=== PATIENT | male | born 1995 | race Two or more races ===

== ENCOUNTER 2016-11-22 01:46 | Emergency (ER) | payer SELFPAY ==
[2016-11-22 02:21] VITALS: BP 118/70
== END 2016-11-22 04:00 | disposition left against medical advice (07) ==
LOC: ER 01:46
DX: Z53.9 Procedure and treatment not carried out, unspecified reason (principal); R07.9 Chest pain, unspecified

== ENCOUNTER 2017-12-13 19:49 | Emergency (ER) | payer SELFPAY ==
[2017-12-13] MEDS ORDERED: KETOROLAC TROMETHAMINE INJ/PF 30 MG/1 ML SDV IM ONE (20:55)
--- NOTE | 2017-12-13 20:58 | ER Document Report ---
ED Cardiac - General Chief Complaint: L sided rib/ side pain Stated Complaint: LT SIDE PAIN Time Seen by Provider: 12/13/17 20:49 Mode of Arrival: Ambulatory Information source: Patient TRAVEL OUTSIDE OF THE [place] IN LAST 30 DAYS: No - HPI Patient complains to provider of: Chest pain Notes: The patient is here with complaints of left side/rib pain is been present for the last 5 days. He states the pain has been constant. It is worse if he moves his left arm or touches the area. It is worse to lay on that side. Is also worse if he takes a deep breath or coughs. He denies any shortness of breath. He denies any recent long trips or surgeries, no leg pain or swelling, no history of DVT or PE, no history of cancer. He denies any abdominal pain. He denies any nausea, vomiting, diarrhea. No blood thinners. No dysuria or hematuria. No history of kidney stones. He denies any traumatic injury to this area. No rash. No fever. He has no other complaints at this time. He denies a history of hypertension, high cholesterol, diabetes, CAD. - Related Data Allergies/Adverse Reactions: No Known Allergies Allergy (Verified 11/22/16 02:13) Past Medical History - Social History Smoking Status: Never Smoker Chew tobacco use (# tins/day): No Frequency of alcohol use: Occasional Drug Abuse: Marijuana Family History: None Patient has suicidal ideation: No Patient has homicidal ideation: No Neurological Medical History: Reports: Hx Migraine Renal/ Medical History: Denies: Hx Peritoneal Dialysis - Immunizations Immunizations up to date: Yes Hx Diphtheria, Pertussis, Tetanus Vaccination: Yes Review of Systems - Review of Systems -: Yes All other systems reviewed and negative Physical Exam - Vital signs Vitals: Temp Pulse Resp BP Pulse Ox 99.1 F 77 16 118/78 98 12/13/17 20:28 12/13/17 20:28 12/13/17 20:28 12/13/17 20:28 12/13/17 20:28 - Notes Notes: GENERAL: alert, cooperative, nontoxic, no distress. HEAD: normocephalic, atraumatic EYES: conjunctiva pink without discharge, no external redness or swelling. EARS: no external swelling, no external redness NOSE: atraumatic, no external swelling MOUTH/THROAT: mucous membranes moist and pink, posterior pharynx without erythema, swelling, exudate. No trismus or drooling. NECK: soft, supple, full range of motion, no meningismus. CHEST: no distress, lungs clear and equal throughout. No wheezing, rales, rhonchi. Tenderness to the left lateral and posterior ribs. No crepitus. No rash to this area. CARDIAC: regular rate and rhythm, no murmur, normal capillary refill, normal pulses. No peripheral edema noted. ABDOMEN: Soft, nontender. No rebound tenderness or guarding. No mass. BACK: full range of motion, no CVA tenderness. EXTREMITIES: full range of motion of all extremities. No redness, no swelling. NEURO: alert and oriented x 3, no focal deficits, full range of motion of all extremities. PYSCH: appropriate mood, affect. Patient is cooperative. SKIN: pink, warm, dry, no rash. Course - Re-evaluation Re-evalutation: 12/13/17 23:20 The patient is nontoxic appearing with stable vitals. The patient has been having left rib/side pain for the last few days. Worse with movement, worse with touching the area, worse with taking a deep breath. No shortness of breath. He has no PE risk factors and is PERC rule negative for PE, therefore no further provocative testing is required to rule out PE. EKG shows no signs of pericarditis or other acute findings. Chest x-ray shows no acute findings. Urinalysis shows no significant findings with no blood concerning for kidney stone. The pain is reproducible and worse with movement and likely musculoskeletal in nature. At this point the patient will be discharged home with Naprosyn. Follow-up if not better in 1 week, sooner for worsening pain, high fever, persistent vomiting, or for any further concerns. The patient's emergency department workup and current diagnosis were explained to the patient and or family. Follow-up instructions were provided. Medications if prescribed were discussed. Instructions for when to return to the emergency department including specific worrisome symptoms were discussed with the patient and/or family. - Vital Signs Vital signs: Temp Pulse Resp BP Pulse Ox 99.1 F 77 16 118/78 98 12/13/17 20:28 12/13/17 20:28 12/13/17 20:28 12/13/17 20:28 12/13/17 20:28 - Laboratory Laboratory results interpreted by me: 12/13/17 22:20 Urine Urobilinogen 4.0 H Ur Leukocyte Esterase TRACE H Urine Ascorbic Acid 40 H - Diagnostic Test Radiology reviewed: Image reviewed, Reports reviewed - Chest x-ray negative - EKG Interpretation by Me EKG shows normal: Sinus rhythm, [place], Intervals, QRS Complexes, ST-T Waves Rate: Normal Discharge - Discharge Clinical Impression: Left-sided chest wall pain Condition: Stable Disposition: HOME, SELF-CARE Instructions: Anti-Inflammatory Medication ([facility]), Chest Wall Pain ([facility]) Additional Instructions: Take medications as prescribed. Apply ice to sore area. Follow-up with your doctor if not better in 1 week, sooner for increasing pain, high fever, persistent vomiting, blood in your urine, difficulty breathing, or for any further concerns. Prescriptions: Naproxen [Naprosyn] 500 mg PO BID #20 tablet Forms: Smoking Cessation Education Referrals: [facility] [Provider Group] - Follow up as needed
--- NOTE | 2017-12-13 21:58 | RADIOLOGY REPORT (SQ) ---
EXAM DESCRIPTION: CHEST PA/LAT COMPLETED DATE/TIME: 12/13/2017 9:16 pm REASON FOR STUDY: LEFT CP COMPARISON: Chest films 06/30/2016, 11/10/2010 EXAM PARAMETERS: NUMBER OF VIEWS: two views TECHNIQUE: Digital Frontal and Lateral radiographic views of the chest acquired. RADIATION DOSE: NA LIMITATIONS: none FINDINGS: LUNGS AND PLEURA: No acute infiltrates. No pleural effusion or pneumothorax. Faintly rad iopaque surgical oralia at the left lung apex, unchanged. MEDIASTINUM AND HILAR STRUCTURES: No masses or contour abnormalities. HEART AND VASCULAR STRUCTURES: Heart normal size. No evidence for failure. BONES: No acute findings. HARDWARE: None in the chest. OTHER: No other significant finding. IMPRESSION: No acute changes TECHNICAL DOCUMENTATION: JOB ID: [id number] [employer]- All Rights Reserved Reading location - IP/workstation name: [email or web address]
[2017-12-13 22:37] LABS: APPEARANCE,URINE CLEAR; BILIRUBIN,URINE NEGATIVE (NEGATIVE); COLOR,URINE YELLOW; GLUCOSE, URINE NEGATIVE (NEGATIVE); KETONES,URINE NEGATIVE (NEGATIVE); LEUKOCYTE ESTERASE,URINE TRACE (NEGATIVE); NITRITE,URINE NEGATIVE (NEGATIVE); PROTEIN,URINE NEGATIVE (NEGATIVE); URINE SPECIFIC GRAVITY 1.021
[2017-12-13 23:52] VITALS: BP 128/72
--- NOTE | 2017-12-14 08:22 | EKG REPORT ---
SEVERITY:- BORDERLINE ECG - SINUS RHYTHM ST ELEV, PROBABLE NORMAL EARLY REPOL PATTERN : Confirmed by: Claus Lemons MD 14-Dec-2017 08:21:11
== END 2017-12-13 22:51 | disposition home or self-care (01) ==
LOC: ER 19:49
DX: R07.81 Pleurodynia (principal); R07.9 Chest pain, unspecified
CPT/HCPCS: 93005; 99284; 96372; 81001; 71046; 93010; J1885

== ENCOUNTER 2018-02-23 02:21 | Emergency (ER) | payer SELFPAY ==
[2018-02-23 02:33] VITALS: BP 121/69
[2018-02-23] MEDS ORDERED: AMOXICILLIN TR/POT CLAVULANATE 500-125 MG TAB PO ONE (03:46)
--- NOTE | 2018-02-23 04:02 | ER Document Report ---
ED General - General Chief Complaint: Dog Bite Stated Complaint: POSSIBLE DOG BITE Time Seen by Provider: 02/23/18 03:40 Notes: Patient is a 22-year-old male who presents with complaint of a dog bite to the right wrist and forearm. He said occurred 2 days ago. He said it was a well- kept appearing dog and he was checked to see if had a collar. The dog became scared and bit him. He said the dog was otherwise not acting appropriately. Denies any fevers but has noticed some swelling and redness now to his wrist and therefore is come to the ER. He has no chronic medical problems. Is otherwise healthy. TRAVEL OUTSIDE OF THE [place] IN LAST 30 DAYS: No - Related Data Allergies/Adverse Reactions: No Known Allergies Allergy (Verified 11/22/16 02:13) Past Medical History - Social History Smoking Status: Current Every Day Smoker Chew tobacco use (# tins/day): No Frequency of alcohol use: None Drug Abuse: None Family History: None Patient has suicidal ideation: No Patient has homicidal ideation: No Neurological Medical History: Reports: Hx Migraine Renal/ Medical History: Denies: Hx Peritoneal Dialysis - Immunizations Immunizations up to date: Yes Hx Diphtheria, Pertussis, Tetanus Vaccination: Yes Review of Systems - Review of Systems Notes: My Normal Review Basic REVIEW OF SYSTEMS: CONSTITUTIONAL : Denies fever, chills, or sweats. Denies recent illness. MUSCULOSKELETAL: Dog bite to right wrist and forearm. SKIN: Denies rash or skin lesions. HEMATOLOGIC : Denies easy bruising or bleeding. LYMPHATIC: Denies swollen, enlarged glands. NEUROLOGICAL: Denies sensory or motor loss. ALL OTHER SYSTEMS REVIEWED AND NEGATIVE. Physical Exam - Vital signs Vitals: Temp Pulse Resp BP Pulse Ox 99.0 F 92 16 121/69 97 02/23/18 02:32 02/23/18 02:32 02/23/18 02:32 02/23/18 02:32 02/23/18 02:32 - Notes Notes: General Appearance: Well nourished, alert, cooperative, no acute distress, no obvious discomfort. Vitals: reviewed, See vital signs table. Extremities: strength 5/5 in all extremities, good pulses in all extremities, she has a puncture wound over the right wrist. He also has a small superficial tear type laceration over the forearm. The puncture wound does have a small amount of redness and swelling around it consistent with a developing infection. The remainder of the hand and forearm do not have any redness or swelling. Patient is able to move all fingers of his hand. He is able flex and extend the wrist but has a small amount of pain in doing so. Skin: warm, dry, appropriate color, no rash Neuro: speech clear, oriented x 3, normal affect, responds appropriately to questions. Course - Re-evaluation Re-evalutation: 02/23/18 04:54 I did give the patient a wrist splint as he says it is more comfortable for him to have some support to his wrist. He does have approximately 2 cm area of surrounding erythema around dog bite system with developing cellulitis. I will place him on Augmentin. Informed him that if he has any spreading of the redness or swelling that he must return to ER immediately. I did talk to him at length about rabies immunoglobulin prophylactic treatment. I informed her that we do recommend this as rabies is fatal. Patient says that she is pretty sure the dog does not have rabies is not want to incur the cost of the vaccination therefore is going to take the risk and not receiving the rabies treatment. I informed him that he should return to ER anytime if he does change his mind so that we can treat him. Patient agrees with plan will be discharged home. Dictation of this chart was performed using voice recognition software; therefore, there may be some unintended grammatical errors. - Vital Signs Vital signs: Temp Pulse Resp BP Pulse Ox 99.0 F 92 16 121/69 97 02/23/18 02:32 02/23/18 02:32 02/23/18 02:32 02/23/18 02:32 02/23/18 02:32 Discharge - Discharge Clinical Impression: Dog bite Qualifiers: Encounter type: initial encounter Qualified Code(s): W54.0XXA - Bitten by dog, initial encounter Cellulitis Qualifiers: Site of cellulitis: unspecified site Qualified Code(s): L03.90 - Cellulitis, unspecified Condition: Good Disposition: HOME, SELF-CARE Additional Instructions: Please take the antibiotics as prescribed. Please change your dressings daily. You need to return to the ER immediately if the redness is increasing on your wrist. Any worsening of infection is emergent and you need to return to the ER immediately. As discussed with you we, do recommend rabies vaccination as rabies, although rare, is fatal. You have one week from the time of bite to decide whether not to the rabies vaccination. Again we do recommend the rabies vaccination. Prescriptions: Amox Tr/Potassium Clavulanate [Augmentin 875-125 Tablet] 1 tab PO BID 7 Days tablet
--- NOTE | 2018-02-23 04:35 | RADIOLOGY REPORT (SQ) ---
EXAM DESCRIPTION: XR WRIST CLINICAL HISTORY: 22 years Male, dog bite COMPARISON: None. Findings: Mild swelling. No radiopaque foreign body. Bones, joints, and soft tissues of the XR WRIST 3 VIEW RIGHT appear otherwise intact. IMPRESSION: Mild swelling.
== END 2018-02-23 05:40 | disposition home or self-care (01) ==
LOC: ER 02:21
DX: S61.551A Open bite of right wrist, initial encounter (principal); S50.871A Other superficial bite of right forearm, initial encounter; L03.113 Cellulitis of right upper limb; W54.0XXA Bitten by dog, initial encounter; Y93.89 Activity, other specified; F17.200 Nicotine dependence, unspecified, uncomplicated
CPT/HCPCS: 99283; 73110; L3908

== ENCOUNTER 2020-03-14 17:27 | Emergency (ER) | payer SELFPAY ==
[2020-03-14 17:38] VITALS: BP 127/77
[2020-03-14] MEDS ORDERED: ASPIRIN 81 MG TABLET, CHEWABLE PO ONE (17:42)
--- NOTE | 2020-03-14 17:45 | ER Document Report ---
ED Medical Screen (RME) - General Chief Complaint: Palpitations Stated Complaint: PALPITATIONS Time Seen by Provider: 03/14/20 17:40 Mode of Arrival: Ambulatory Information source: Patient Notes: 24-year-old male presented to ED for complaint of palpitations off and on. He states it feels like his heart is racing and he feels like there is a big knot in his throat. He states his not having any "chest pain "but he just does not feel right. He states he does drink 5-hour energy drinks maybe 8 out of every 14 days. He does smoke 2 to 3 cigarettes a day and smokes marijuana. Does not drink alcohol. Patient is alert oriented respirations regular nonlabored at this time. I have greeted and performed a rapid initial assessment of this patient. A comprehensive ED assessment and evaluation of the patient, analysis of test results and completion of medical decision making process will be conducted by an additional ED providers. TRAVEL OUTSIDE OF THE [place] IN LAST 30 DAYS: No - Related Data Allergies/Adverse Reactions: No Known Allergies Allergy (Verified 03/14/20 17:38) Past Medical History - Social History Family history: Reviewed & Not Pertinent Neurological Medical History: Reports: Hx Migraine Renal/ Medical History: Denies: Hx Peritoneal Dialysis - Immunizations Immunizations up to date: Yes Hx Diphtheria, Pertussis, Tetanus Vaccination: Yes Physical Exam - Vital signs Vitals: Temp Pulse Resp BP Pulse Ox 99.2 F 88 21 H 127/77 H 95 03/14/20 17:37 03/14/20 17:37 03/14/20 17:37 03/14/20 17:37 03/14/20 17:37 Course - Vital Signs Vital signs: Temp Pulse Resp BP Pulse Ox 99.2 F 88 21 H 127/77 H 95 03/14/20 17:37 03/14/20 17:37 03/14/20 17:37 03/14/20 17:37 03/14/20 17:37
[2020-03-14 18:14] LABS: ABSOLUTE BASOPHILS # (AUTO) 0.1 10^3/uL (0.0-0.2); ABSOLUTE EOSINOPHILS # (AUTO) 0.1 10^3/uL (0.0-0.6); ABSOLUTE LYMPHOCYTES (AUTO) 2.5 10^3/uL (0.5-4.7); ABSOLUTE MONOCYTES (AUTO) 0.7 10^3/uL (0.1-1.4); ABSOLUTE NEUT (AUTO) 6.5 10^3/uL (1.7-8.2); EOSINOPHILS % (AUTO) 0.6 % (0-6); HEMATOCRIT 40.3 % (37.9-51.0); HEMOGLOBIN 13.6 g/dL (13.5-17.0); LYMPHOCYTES % (AUTO) 25.8 % (13-45); MEAN CORPUSCULAR HGB CONC 33.8 g/dL (32.0-36.0); MEAN CORPUSCULAR VOLUME 83 fl (80-97); MONOCYTES % (AUTO) 6.8 % (3-13); PLATELET COUNT 263 10^3/uL (150-450); RED BLOOD COUNT 4.87 10^6/uL (4.35-5.55); RED CELL DISTRIBUTION WIDTH 13.4 % (11.5-14.0); SEGMENTED NEUTROPHILS % (AUTO) 65.8 % (42-78); TOTAL CELLS COUNTED % (AUTO) 100 %; WHITE BLOOD COUNT 9.8 10^3/uL (4.0-10.5)
[2020-03-14 18:32] LABS: ALBUMIN 4.6 g/dL (3.5-5.0); ALKALINE PHOSPHATASE 67 U/L (38-126); ANION GAP 8 (5-19); ASPARTATE AMINO TRANSFERASE 30 U/L (17-59); BILIRUBIN,TOTAL 0.6 mg/dL (0.2-1.3); BLOOD UREA NITROGEN 14 mg/dL (7-20); CALCIUM 9.8 mg/dL (8.4-10.2); CARBON DIOXIDE 27 mmol/L (22-30); CHLORIDE 102 mmol/L (98-107); GLUCOSE 92 mg/dL (75-110); POTASSIUM 3.8 mmol/L (3.6-5.0)
--- NOTE | 2020-03-14 18:32 | RADIOLOGY REPORT (SQ) ---
EXAM DESCRIPTION: CHEST 2 VIEWS IMAGES COMPLETED DATE/TIME: 03/14/2020 5:57 pm REASON FOR STUDY: palpitations COMPARISON: 12/13/2017 EXAM PARAMETERS: NUMBER OF VIEWS: two views TECHNIQUE: Digital Frontal and Lateral radiographic views of the chest acquired. RADIATION DOSE: NA LIMITATIONS: none FINDINGS: LUNGS AND PLEURA: No opacities, masses or pneumothorax. No pleural effusion. MEDIASTINUM AND HILAR STRUCTURES: No masses or contour abnormalities. HEART AND VASCULAR STRUCTURES: Heart normal size. No evidence for failure. BONES: No acute findings. HARDWARE: None in the chest. OTHER: No other significant finding. IMPRESSION: NO ACUTE RADIOGRAPHIC FINDING IN THE CHEST. TECHNICAL DOCUMENTATION: JOB ID: [id number] [employer]- All Rights Reserved Reading location - IP/workstation name: [email or web address]
--- NOTE | 2020-03-14 19:07 | EKG REPORT ---
SEVERITY:- OTHERWISE NORMAL ECG - SINUS RHYTHM VENTRICULAR PREMATURE COMPLEX : Confirmed by: Paula Nguyen MD 14-Mar-2020 19:06:41
--- NOTE | 2020-03-14 20:43 | ER Document Report ---
ED General - General Chief Complaint: Palpitations Stated Complaint: PALPITATIONS Time Seen by Provider: 03/14/20 17:40 Mode of Arrival: Ambulatory TRAVEL OUTSIDE OF THE [place] IN LAST 30 DAYS: No - HPI Notes: Patient is a 24-year-old male who presents to the emergency department for evaluation of palpitations. He states his been getting them daily for a little over a week. He states that he will have 3 or 4 over the course of 10 minutes. He states that just feels like a "muscle jerk." He denies any associated nausea, shortness of breath, diaphoresis, near syncope. No chest pain or tightness. Patient admits to drinking an excessive amount of caffeine. - Related Data Allergies/Adverse Reactions: No Known Allergies Allergy (Verified 03/14/20 17:38) Home Medications: None Past Medical History - General Information source: Patient - Social History Smoking Status: Current Every Day Smoker Chew tobacco use (# tins/day): No Frequency of alcohol use: None Drug Abuse: Marijuana Family History: None Patient has homicidal ideation: No Neurological Medical History: Reports: Hx Migraine Renal/ Medical History: Denies: Hx Peritoneal Dialysis - Immunizations Immunizations up to date: Yes Hx Diphtheria, Pertussis, Tetanus Vaccination: Yes Review of Systems - Review of Systems Cardiovascular: See HPI -: Yes All other systems reviewed and negative Physical Exam - Vital signs Vitals: Temp Pulse Resp BP Pulse Ox 99.2 F 88 21 H 127/77 H 95 03/14/20 17:37 03/14/20 17:37 03/14/20 17:37 03/14/20 17:37 03/14/20 17:37 - Notes Notes: This is a very pleasant 24-year-old male, sitting up in the bed. He appears his stated age, in no acute distress. Vital signs reviewed, please refer to chart. Head is normocephalic, atraumatic. Pupils equal round, reactive to light. Neck is supple without meningismus. Heart is regular rate and rhythm. Lungs are clear to auscultation bilaterally. Abdomen is soft, nontender, normoactive bowel sounds throughout. Extremities without cyanosis, clubbing. Posterior calves are nontender. Peripheral pulses are equal. Skin is warm and dry. Patient is awake, alert, neurological exam is nonfocal. Course - Re-evaluation Re-evalutation: 03/14/20 20:42 Patient presents to the emergency department for evaluation. Laboratory in vestigations as ordered through triage. His EKG revealed a PVC, the likely culprit of his palpitations. His laboratory investigations failed to reveal any significant abnormality. He probably is experiencing some mild myocardial irritability secondary to excessive caffeine consumption. The patient is told he should decrease his caffeine intake, he voiced understanding. Otherwise, he is to follow-up with primary care next week, return to the ER with worsening or new concerning symptoms of any sort. - Vital Signs Vital signs: Temp Pulse Resp BP Pulse Ox 99.2 F 88 21 H 127/77 H 95 03/14/20 17:39 03/14/20 17:37 03/14/20 17:37 03/14/20 17:37 03/14/20 17:37 - Laboratory Result Diagrams: 03/14/20 18:00 03/14/20 18:00 - Diagnostic Test Radiology reviewed: Image reviewed, Reports reviewed Radiology results interpreted by me: 03/14/20 20:42 Chest X-Ray 03/14/20 17:43 IMPRESSION: NO ACUTE RADIOGRAPHIC FINDING IN THE CHEST. - EKG Interpretation by Me Additional EKG results interpreted by me: 03/14/20 20:43 Sinus mechanism with a rate of 83 bpm, PVC noted. Normal axis and intervals. No acute ST changes concerning for ischemia or infarction. Discharge - Discharge Clinical Impression: Palpitations Condition: Stable Disposition: HOME, SELF-CARE Instructions: Palpitations (Irregular or Rapid Heartrate) ([facility]) Additional Instructions: Decrease your caffeine consumption. Follow-up with primary care next week. If you develop chest pain, difficulty breathing, or any other new or concerning symptoms, please return immediately to the emergency department for evaluation.
== END 2020-03-14 22:21 | disposition home or self-care (01) ==
LOC: ER 17:27
DX: R00.2 Palpitations (principal); F17.200 Nicotine dependence, unspecified, uncomplicated; F12.10 Cannabis abuse, uncomplicated
CPT/HCPCS: 36415; 71046; 80053; 84443; 84484; 85025; 93005; 93010; 99285